=== PATIENT | female | born 1945 | race Caucasian/White ===

== ENCOUNTER 2022-11-03 14:36 | Inpatient (IN) | payer OTHER ==
[~2022-11-03] VITALS: Ht 160 cm; Wt 97.5 kg
[2022-11-20] MEDS ORDERED: GLIMEPIRIDE4 M1 (15:59)
[2022-11-20] MEDS ORDERED: ARIPIPRAZOLE5 MG (15:59)
[2022-11-20] MEDS ORDERED: FUROSEMIDE20 MG (15:59)
[2022-11-20] MEDS ORDERED: METOPROLOL SUCC25 MG (15:59)
[2022-11-20] MEDS ORDERED: CITALOPRAM HBR40 MG (15:59)
[2022-11-20] MEDS ORDERED: TRAZODONE HCL150 MG (15:59)
[2022-11-20] MEDS ORDERED: PANTOPRAZOLE SO40 MG (16:00)
[2022-11-20] MEDS ORDERED: ATORVASTATIN CA10 MG (16:00)
[2022-11-20] MEDS ORDERED: CANDESARTAN CILE4 MG (16:00)
[2022-11-20] MEDS ORDERED: METFORMIN HCL500 M4 (16:00)
== END 2022-11-26 13:20 | disposition designated cancer center or children's hospital (05) | DRG 637 ==
LOC: ER 14:36 → MEDI 11-04 01:13 → ICU-2 11-04 02:07 → SEC-K 11-05 13:13 → MEDJ 11-05 13:24 → MEDI 11-07 18:38
PROVIDERS: ADMIT Internal Medicine; ATTEND Internal Medicine
PROC: BW28ZZZ Computerized Tomography (CT Scan) of Head (ICD-10-PCS; principal; 2022-11-03)
PROC: B24BYZZ Ultrasonography of Heart with Aorta using Other Contrast (ICD-10-PCS; 2022-11-03)
PROC: 4A12X4Z Monitoring of Cardiac Electrical Activity, External Approach (ICD-10-PCS; 2022-11-04)
PROC: 5A0945A Assistance with Respiratory Ventilation, 24-96 Consecutive Hours, High Flow/Velocity Cannula (ICD-10-PCS; 2022-11-04)
PROC: BW24ZZZ Computerized Tomography (CT Scan) of Chest and Abdomen (ICD-10-PCS; 2022-11-21)
DX: E11.649 Type 2 diabetes mellitus with hypoglycemia without coma (principal); I13.0 Hypertensive heart and chronic kidney disease with heart failure and stage 1 through stage 4 chronic kidney disease, or unspecified chronic kidney disease; I50.23 Acute on chronic systolic (congestive) heart failure; I25.110 Atherosclerotic heart disease of native coronary artery with unstable angina pectoris; E11.65 Type 2 diabetes mellitus with hyperglycemia; N18.30 Chronic kidney disease, stage 3 unspecified; N17.9 Acute kidney failure, unspecified; J44.9 Chronic obstructive pulmonary disease, unspecified; D64.9 Anemia, unspecified; R41.82 Altered mental status, unspecified; R47.89 Other speech disturbances; R09.02 Hypoxemia; Z95.2 Presence of prosthetic heart valve